=== PATIENT | male | born 1955 | race Caucasian/White ===

== ENCOUNTER 2017-03-22 03:35 | Emergency (ER) | payer BC ==
--- NOTE | 2017-03-22 19:04 | ER ---
ADMIT: 03/22/2017 RM/LOC: ER [facility] MR#: [id number] [facility] [address] [place], [place] [id number] TALAT DELONG [address] [place] [id number] Emergency Room Report SEX: M AGE: 61 : 1955 DATE: 03/22/2017 The patient is a 61-year-old, [place]ian-speaking male, complaining of epigastric abdominal pain described as burning for the past 15 hours. Denies any prior history of gallbladder disease. Exam remarkable for nontoxic, afebrile male, minimally tender right upper quadrant epigastrium. EKG showed sinus rhythm without ST-T or Q-wave change. Chest x-ray, negative. Normal CBC, CMP, except for glucose 141, potassium 3.6, troponin less than 0.015. Normal D- dimer and BNP. Lipase slightly elevated at 571. CRP 0.34, lactic 0.7. Negative alcohol, tox screen, and UA. CT did show evidence of acute-on- chronic cholecystitis with thickened gallbladder wall and impacted stone in the neck of the gallbladder. The patient was given IV fluids, Zofran, Toradol, Protonix, Dilaudid with relief of pain. Recommended admission for cholecystectomy, the patient declined. Recommended clear liquids only, hydrocodone 5/325 mg as needed #15 plus #6. Followup with Dr. Dodge on Thursday. Miguel Angel Issa MD/ belal JOB #: [id number] CC: Miguel Angel Issa MD, Attending Physician Silverio Gonzales MD, Family Physician MD Silverio Ramsay MD
== END 2017-03-22 06:15 | disposition home or self-care (01) ==
LOC: ER 03:35
DX: K80.50 Calculus of bile duct without cholangitis or cholecystitis without obstruction (principal); K85.90 Acute pancreatitis without necrosis or infection, unspecified; F17.210 Nicotine dependence, cigarettes, uncomplicated; Z98.890 Other specified postprocedural states